=== PATIENT | female | born 1970 | race Two or more races ===

== ENCOUNTER 2017-06-28 08:49 | Day surgery (SDC) | payer OTHER ==
[2017-06-28 09:12] VITALS: BMI 23.9
[2017-06-28 10:25] VITALS: TEMP 97.5
[2017-06-28 11:11] VITALS: BP 112/65; PULSE 65
--- NOTE | 2017-06-30 11:14 | PATH ---
Surgical Pathology Report Patient Name: KIERA ROGERS [facility]. Rec. #: [id number] /Age/Gender: 1970 (Age: 46) / F Account: [id number] Location: U-ENDOSCOPY Taken: 06/28/2017 Received: 06/28/2017 Reported: 06/30/2017 Physicians: Allan Red M.D. Specimen(s) Received A: BX DUODENUM B: BX ANTRUM AND BODY C: BX DISTAL ESOPHAGUS AND GE JUNCTION Clinical History Preoperative diagnosis: Abdominal pain Postoperative diagnosis: Mild esophagitis Final Diagnosis A. SECOND PORTION OF DUODENUM, BIOPSY: DUODENAL MUCOSA WITH NO PATHOLOGIC FINDINGS. B. ANTRUM AND BODY, BIOPSY: MILD CHRONIC GASTRITIS. IMMUNOSTAIN IS NEGATIVE FOR H. PYLORI ORGANISMS. C. DISTAL ESOPHAGUS AND GE JUNCTION, BIOPSY: ESOPHAGEAL (SQUAMOUS) MUCOSA WITH NO PATHOLOGIC FINDINGS. NO GASTRIC/GASTROESOPHAGEAL JUNCTIONAL MUCOSA IS IDENTIFIED. Electronically Signed Elina Ugalde M.D. Gross Description A. Received in formalin, labeled "biopsy second portion of duodenum" are 3 chew, irregular portions of soft tissue ranging from 0.1-0.3 cm. in greatest dimension. The specimens are submitted in toto in one cassette. B. Received in formalin, labeled "biopsy antrum and body" are 3 chew, irregular portions of soft tissue ranging from 0.1-0.8 cm. in greatest dimension. The specimens are submitted in toto in one cassette. C. Received in formalin, labeled "biopsy distal esophagus and GE junction" is a chew, irregular portion of soft tissue measuring 0.3 cm. in greatest dimension. The specimen is submitted in toto in one cassette. 06/28/2017 saudi06/28/2017
== END 2017-06-28 12:00 | disposition home or self-care (01) ==
LOC: JASU-ENDO 08:49
PROVIDERS: ATTEND Internal Medicine Gastroenterology
PROC: 0DB68ZX Excision of Stomach, Via Natural or Artificial Opening Endoscopic, Diagnostic (ICD-10-PCS; 2017-06-28)
PROC: 0DB48ZX Excision of Esophagogastric Junction, Via Natural or Artificial Opening Endoscopic, Diagnostic (ICD-10-PCS; 2017-06-28)
PROC: 0DB98ZX Excision of Duodenum, Via Natural or Artificial Opening Endoscopic, Diagnostic (ICD-10-PCS; principal; 2017-06-28 09:00)
DX: K20.8 Other esophagitis (principal); K29.50 Unspecified chronic gastritis without bleeding
CPT/HCPCS: 84703; 88305-TC; 88342-TC